=== PATIENT | male | born 1990 | race African-American/Black ===

== ENCOUNTER 2018-08-27 11:46 | Emergency (ER) | payer OTHER, SELFPAY ==
[2018-08-27 11:49] VITALS: BP 136/85; PULSE 72; RESP 14; TEMP 36.4; O2SAT 100; BMI 23.6
[2018-08-27] MEDS: ACETAMINOPHEN 325 MG TABLET 975 MG PO (12:03)
[2018-08-27] MEDS: IBUPROFEN 400 MG TABLET 800 MG PO (12:04)
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
[2018-08-27 13:44] VITALS: BP 129/93; PULSE 65; RESP 20; O2SAT 99
== END 2018-08-27 13:45 | disposition home or self-care (01) ==
PROVIDERS: Emergency Provider Internal Medicine
DX: S13.4XXA Sprain of ligaments of cervical spine, initial encounter (principal); S39.012A Strain of muscle, fascia and tendon of lower back, initial encounter; V43.51XA Car driver injured in collision with sport utility vehicle in traffic accident, initial encounter
CPT/HCPCS: 72040; 72100; 99282; 99283

== ENCOUNTER 2018-09-03 14:21 | Emergency (ER) | payer OTHER, SELFPAY ==
[2018-09-03 14:27] VITALS: BP 155/104; PULSE 72; RESP 15; TEMP 36.6; O2SAT 100; BMI 23.8
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
[2018-09-03 16:03] VITALS: BP 151/97; PULSE 67; RESP 16; O2SAT 99
== END 2018-09-03 16:12 | disposition home or self-care (01) ==
PROVIDERS: Emergency Provider Internal Medicine
DX: S13.4XXA Sprain of ligaments of cervical spine, initial encounter (principal); S39.012A Strain of muscle, fascia and tendon of lower back, initial encounter; V89.2XXA Person injured in unspecified motor-vehicle accident, traffic, initial encounter
CPT/HCPCS: 99282

== ENCOUNTER → 2020-10-17 13:28 | Outpatient (ROUT) | payer OTHER, SELFPAY ==
[2020-10-17 13:56] LABS: COVID19 -Nasal RAPID Negative (Negative)
== END ==
PROVIDERS: Visit Provider Family Medicine
DX: Z20.822 Contact with and (suspected) exposure to COVID-19 (principal)
CPT/HCPCS: 87635

== ENCOUNTER 2021-09-22 13:05 | Emergency (ER) | payer OTHER, MEDICAID, SELFPAY ==
[2021-09-22 13:21] VITALS: BP 138/74; PULSE 86; RESP 18; TEMP 37.6; O2SAT 99; BMI 24.0
[2021-09-22 13:45] LABS: COVID19 -Nasal RAPID POSITIVE (Negative)
--- NOTE | 2021-09-22 20:27 | ED.HA ---
HPI - Headache <Chin Singh PA-C - Last Filed: 09/22/21 20:28> General Chief Complaint: Headache Stated Complaint: Double Ear Infection, Head Pressure Time Seen by Provider: 09/22/21 15:10 Mode of arrival: Ambulatory History of Present Illness HPI Narrative: Patient left without being seen by remote mortgage underwriter of this document. Related Data Allergies Allergy/AdvReac Type Severity Reaction Status Date / Time No Known Drug Allergies Allergy Verified 09/22/21 13:25 Patient History <Chin Singh PA-C - Last Filed: 09/22/21 20:28> Medical History (Updated 09/22/21 @ 15:11 by Josephine Mcconnell RN) Knee osteoarthritis Social History Smoking Status: Never smoker alcohol intake: former substance use type: does not use Smoking Status: Never smoker alcohol intake frequency: 0-2 drinks per day Substance Use Type: does not use Exam <Chin Singh PA-C - Last Filed: 09/22/21 20:28> Initial Vital Signs Initial Vital Signs: Vital Signs Temperature 99.6 F 09/22/21 13:21 Pulse Rate 86 09/22/21 13:21 Respiratory Rate 18 09/22/21 13:21 Blood Pressure 138/74 09/22/21 13:21 Pulse Oximetry 99 09/22/21 13:21 Course <Chin Singh PA-C - Last Filed: 09/22/21 20:28> Orders Ordered: ED Orders 09/22/21 13:32 COVID19 -Nasal swab/Pre-Proc Stat Vital Signs Vital signs: Vital Signs - 8 hr 09/22/21 13:21 Temperature 99.6 F Pulse Rate 86 Respiratory Rate 18 Blood Pressure 138/74 Pulse Oximetry 99 MDM - Headache <Chin Singh PA-C - Last Filed: 09/22/21 20:28> Lab Data Labs: Lab Results 09/22/21 Range/Units 13:32 SARS-CoV-2 (PCR) Positive H (Negative) Discharge Plan Departure Patient Disposition: Left Without Being Seen Clinical Impression: Patient left without being seen
== END 2021-09-22 15:15 | disposition left against medical advice (07) ==
PROVIDERS: Emergency Medicine; Emergency Provider Student in an Organized Health Care Education/Training Program
DX: U07.1 COVID-19 (principal); Z53.21 Procedure and treatment not carried out due to patient leaving prior to being seen by health care provider
CPT/HCPCS: 87635; 99281; C9803

== ENCOUNTER 2024-11-27 18:38 | Emergency (ER) | payer MEDICAID, OTHER, SELFPAY ==
[2024-11-27 18:50] VITALS: BP 132/86; PULSE 73; RESP 16; TEMP 36.6; O2SAT 99; BMI 22.8
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
[2024-11-27 20:24] VITALS: BP 148/89; PULSE 54; O2SAT 98
[2024-11-27 20:30] VITALS: BP 141/94; PULSE 53; O2SAT 99
[2024-11-27 21:00] VITALS: BP 141/83; PULSE 62; O2SAT 97
--- NOTE | 2024-11-27 21:09 | ED_ITS ---
HPI - Extremity Injury (Lower) General Chief Complaint: Extremity Injury, Lower Stated Complaint: R Knee, injured during workout Time Seen by Provider: 11/27/24 19:25 Source: patient Mode of arrival: Ambulatory History of Present Illness HPI Narrative: 34-year-old male no reported medical issues does not know exactly what happened states he was drinking alcohol last night he thinks he was working out and fell probably into the rack of workout equipment but does not know exactly how he fell. He was had pain in his knee since then. Painful to weightbear. Painful for any sort of flexion-extension. He was most comfortable extended. He was pain sort of at the medial knee over the tibial plateau. Patient denies any other injuries. Denies any numbness tingling or weakness otherwise. States no daily medications no prior surgeries has had a prior ACL tear on the right. No tobacco states 1 alcoholic drink daily, no recreational drugs other than marijuana. He was accompanied by his . Related Data Previous Rx's Medication Instructions Recorded tramadol 50 mg tablet 50 mg PO Q6H PRN pain #10 tabs 11/27/24 Allergies Allergy/AdvReac Type Severity Reaction Status Date / Time No Known Drug Allergies Allergy Verified 11/27/24 18:50 Review of Systems Review of Systems ROS Unobtainable: All systems reviewed & are unremarkable except as noted in HPI and below Patient History Medical History (Updated 11/27/24 @ 21:37 by Bernadette Holman DO) Knee osteoarthritis Social History Smoking Status: Never smoker alcohol intake: former substance use type: does not use Smoking Status: Never smoker alcohol intake frequency: 0-2 drinks per day Exam Narrative Exam Narrative: GENERAL: Alert and oriented x three, male in distress HEENT: Head normocephalic, atraumatic, EOMI, pupils reactive, face symmetric, moist mucous membranes NECK: Supple, full range of motion CARDIOVASCULAR: Regular rate and rhythm without murmurs, rubs or gallops. RESPIRATORY: Breath sounds equal bilaterally, no wheezes rales or rhonchi. ABDOMEN: Soft, nontender. Normoactive bowel sounds all 4 quadrants. No guarding or rebound, rigidity, no mass : No CVA tenderness EXTREMITIES: Decreased range of motion of the right knee patient's most comfortable extended has tenderness of the medial knee over the tibial plateau, no other bony tenderness of the patella upper knee side, femur or tib-fib, ankle or foot. 2+ dorsalis pedis. Sensation throughout. No cuts or lacerations., no clubbing or edema. Neurovascularly intact NEUROLOGICAL: Cranial nerves II through XII grossly intact. Moving all extremities SKIN: Warm, dry, no petechiae, no rashes or lesions. Initial Vital Signs Initial Vital Signs: Vital Signs Temperature 97.9 F 11/27/24 18:50 Pulse Rate 73 11/27/24 18:50 Respiratory Rate 16 11/27/24 18:50 Blood Pressure 132/86 11/27/24 18:50 Pulse Oximetry 99 11/27/24 18:50 Oxygen Delivery Method Room Air 11/27/24 18:50 Course Orders Ordered: ED Orders 11/27/24 18:53 XR knee RT 3V Stat 11/27/24 19:25 CT LE RT wo con Stat Vital Signs Vital signs: Vital Signs - 8 hr 11/27/24 18:50 11/27/24 20:24 11/27/24 20:24 Temperature 97.9 F Pulse Rate 73 54 L Respiratory Rate 16 Blood Pressure 132/86 148/89 H Pulse Oximetry 99 98 Oxygen Delivery Method Room Air 11/27/24 20:30 11/27/24 20:30 11/27/24 21:00 Temperature Pulse Rate 53 L 62 Respiratory Rate Blood Pressure 141/94 H Pulse Oximetry 99 97 Oxygen Delivery Method 11/27/24 21:00 11/27/24 21:30 Temperature Pulse Rate 55 L Respiratory Rate Blood Pressure 141/83 H Pulse Oximetry 98 Oxygen Delivery Method MDM - Extremity Injury (Lower) MDM Narrative Medical decision making narrative: Patient has radial lucency and cortical irregularity involving medial tibial plateau moderate tricompartmental osteoarthritis no significant patellar subluxation no suspicious bony lesions [id number] suprapatellar joint effusion concerning for nondisplaced medial tibial plateau fracture with [id number] joint effusion concerning for hemarthrosis CT knee can be done for further eval. CT lower extremity of the knee shows possible depression nondisplaced fracture lucency posterior medial tibial plateau adjacent tibial spines moderate background joint effusion many articular periarticular bone fragments or age indeterminate seen adjacent to tibial plateau none or definitely acute. Patient placed in knee immobilizer, crutches. Spoke with Dr. Van, orthopedic surgery at [id number], reviewed findings from today including complete imaging report and exam. Plan for nonweightbearing knee immobilizer crutches and follow up within a week. Discussed with the patient plan for follow up with Orthopedic surgery, nonweightbearing. Patient work note was provided discussed importance of follow up as he may require surgical repair. Discharge Plan Departure Patient Disposition: Home Clinical Impression: Closed fracture of tibial plateau Instructions: DI for Tibial Plateau Fracture Activity Restrictions/Additional Instructions: Your imaging today shows changes consistent with a tibial plateau fracture, you need to follow up within a week with Orthopedic surgery. Sometimes these are nonoperative but they often require surgical repair so it is important that you follow-up. Call tomorrow morning to set up a follow up appointment. You can take Tylenol and/or ibuprofen for pain if inadequate prescription for tramadol was sent to You can take narcotic pain medication with Tylenol and/or ibuprofen. This medication can make you sleepy do not drive, perform hazardous activities or make any major decisions while taking it. This medication will make you c onstipated please take a stool softener once to twice daily until stools are soft and regular. You can toe-touch weightbear as tolerated use crutches. Splint Care: Keep splint clean and dry. Elevated affected body part to decrease swelling. OK to use ice pack on the affected body part. Use for 15-20 minutes each time, for 5-6x per day. If you develop worsening pain, numbness, tingling, discoloration of the affected body part, loosen the splint by loosening the ANDREW wrap, and either see your doctor for an urgent re-assessment, or return to the Emergency Department. Return to the Emergency Department for any new or worsening symptoms. Prescriptions: New tramadol 50 mg tablet 50 mg PO Q6H PRN (Reason: pain) Qty: 10 0RF Referrals: Miscellaneous,MD Shabbir [Primary Care Provider] - Alejandro Van MD [Physician] - Stand Alone Forms: Patient Portal/API/Survey, Work Release Note
[2024-11-27 21:30] VITALS: PULSE 55; O2SAT 98
== END 2024-11-27 21:54 | disposition home or self-care (01) ==
PROVIDERS: Emergency Provider Emergency Medicine
DX: S82.144A Nondisplaced bicondylar fracture of right tibia, initial encounter for closed fracture (principal); W19.XXXA Unspecified fall, initial encounter
CPT/HCPCS: 73562; 73700; 99283; 99284